=== PATIENT | male | born 1960 | race Caucasian/White ===

== ENCOUNTER 2022-04-02 21:12 | Inpatient (IN) | payer OTHER ==
[~2022-04-02 21:12] MED LIST: Iopamidol-370 76% 500 ML 1 ML ONE
[2022-04-02 22:07] LABS: #Eosinphils 0.2 thou/uL (0.0-0.7); #Lymphocytes 1.5 thou/uL (1.20-3.40); #Monocytes 0.7 thou/uL (0.11-0.59); #Neutrophils 6.9 thou/uL (1.40-6.50); %Basophils 0.4 % (0.0-1.0); %Eosinophils 1.7 % (0.0-10.0); %Lymphocytes 16.3 % (21.0-51.0); %Monocytes 7.3 % (0.0-10.0); %Neutrophils 74.3 % (42.0-75.0); Hemoglobin 14.7 g/dL (14.0-18.0); Mean Corpuscular HGB CONC 33.3 g/dL (32.0-36.0); Mean Corpuscular Hemoglobin 31.8 pg (27.0-31.0); Mean Corpuscular Volume 95.5 fL (78.0-98.0); Mean Platelet Volume 6.1 fL (7.4-10.4); Platelet Count 243 thou/uL (130-400); RBC Distribution Width 12.3 % (11.5-14.5); Red Blood Cell (RBC) Count 4.63 mill/uL (4.70-6.10); White Blood Cell (WBC) Count 9.3 thou/uL (4.8-10.8)
[2022-04-02 22:34] LABS: ALT (SGPT) 25 U/L (8-55); AST (SGOT) 23 U/L (5-34); Albumin 4.8 g/dL (3.4-4.8); Alkaline Phosphatase 83 U/L (40-110); Anion Gap 19 mmol/L (10-20); BUN (Urea Nitrogen) 29 mg/dL (8.4-25.7); Bilirubin, Total 0.6 mg/dL (0.2-1.2); Calc. Creatinine Clearance 0 mL/min (70-130); Calcium 9.6 mg/dL (7.8-10.44); Carbon Dioxide 20 mmol/L (23-31); Chloride 104 mmol/L (98-107); Estimated GFR 44; Globulin 2.5 g/dL (2.4-3.5); Glucose 372 mg/dL (80-115); Potassium 4.6 mmol/L (3.5-5.1); Protein, Total 7.3 g/dL (5.8-8.1); Sodium 138 mmol/L (136-145)
[2022-04-02] MEDS ORDERED: Amiodarone 150 MG/3 ML VIAL ONE (23:20)
[2022-04-02] MEDS ORDERED: Amiodarone 150 MG, Admixture Fee 1 EACH in Dextrose 5% in Water 100 ML IVPB SCH (23:30)
[2022-04-02] MEDS ORDERED: Sodium Chloride 0.9% 1,000 ML IV SCH (23:45)
[2022-04-02] MEDS ORDERED: Dextrose 50% Abboject 50 ML SYRINGE SLOW IVP PRN (23:47)
[2022-04-02] MEDS ORDERED: Insulin Regular 300 UNITS/3 ML VIAL SC PRN (23:47)
[2022-04-02] MEDS ORDERED: Dextrose 5% in Water 1,000 ML IV PRN (23:47)
[2022-04-02] MEDS ORDERED: Ondansetron PF 4 MG/2 ML Vial IVP PRN (23:47)
[2022-04-02] MEDS ORDERED: Ondansetron ODT 4 MG TAB PO PRN (23:47)
[2022-04-03 00:36] LABS: INR-International Normal Ratio 1.1; PTT 32.4 sec (22.9-36.1)
[2022-04-03 00:49] LABS: Magnesium 2.1 mg/dL (1.6-2.6); Phosphorus 2.6 mg/dL (2.3-4.7)
[2022-04-03 01:25] LABS: Troponin I 0.033 ng/mL (< 0.028)
[2022-04-03] MEDS ORDERED: Sodium Chloride 0.9% 1,000 ML IV SCH (01:30)
[2022-04-03] MEDS: Amiodarone 450 MG, Admixture Fee 1 EACH in Dextrose 5% in Water 250 ML IVPB SCH ×3 (01:39→23:51)
[2022-04-03 01:55] LABS: SARS-CoV-2 NAA Rapid Test Not Detected (NotDetected)
[2022-04-03 02:09] VITALS: BMI 30.7
[2022-04-03] MEDS: hydrALAZINE 20 MG/ML VIAL SLOW IVP PRN ×3 (03:33→19:06)
[2022-04-03] MEDS: Insulin Regular 300 UNITS/3 ML VIAL SC PRN ×3 (05:53→16:55)
[2022-04-03] MEDS ORDERED: Labetalol HCl 100 MG/20 ML VIAL SLOW IVP PRN (06:49)
[2022-04-03 07:30] LABS: #Eosinphils 0.1 thou/uL (0.0-0.7); #Lymphocytes 1.6 thou/uL (1.20-3.40); #Monocytes 0.8 thou/uL (0.11-0.59); #Neutrophils 6.9 thou/uL (1.40-6.50); %Basophils 0.3 % (0.0-1.0); %Eosinophils 0.7 % (0.0-10.0); %Lymphocytes 16.9 % (21.0-51.0); %Monocytes 8.1 % (0.0-10.0); Hemoglobin 14.9 g/dL (14.0-18.0); Mean Corpuscular HGB CONC 34.6 g/dL (32.0-36.0); Mean Corpuscular Hemoglobin 33.1 pg (27.0-31.0); Mean Corpuscular Volume 95.6 fL (78.0-98.0); Mean Platelet Volume 6.2 fL (7.4-10.4); Platelet Count 255 thou/uL (130-400); RBC Distribution Width 12.2 % (11.5-14.5); Red Blood Cell (RBC) Count 4.51 mill/uL (4.70-6.10); White Blood Cell (WBC) Count 9.3 thou/uL (4.8-10.8)
[2022-04-03] MEDS: Losartan 25 MG TAB PO SCH (07:33)
[2022-04-03] MEDS: Metoprolol Tartrate 100 MG TAB PO SCH ×2 (07:33→20:56)
[2022-04-03 07:50] LABS: Anion Gap 16 mmol/L (10-20); BUN (Urea Nitrogen) 22 mg/dL (8.4-25.7); Calc. Creatinine Clearance 86 mL/min (70-130); Calcium 9.8 mg/dL (7.8-10.44); Carbon Dioxide 20 mmol/L (23-31); Chloride 107 mmol/L (98-107); Estimated GFR 62; Glucose 214 mg/dL (80-115); Magnesium 2.2 mg/dL (1.6-2.6); Phosphorus 2.7 mg/dL (2.3-4.7); Potassium 4.2 mmol/L (3.5-5.1); Sodium 139 mmol/L (136-145)
[2022-04-03 08:06] LABS: Troponin I 0.037 ng/mL (< 0.028)
[2022-04-03] MEDS: Famotidine/PF 20 mg/2ml Vial SLOW IVP SCH ×2 (08:42→20:55)
[2022-04-03] MEDS ORDERED: Metoprolol Tartrate 100 MG TAB PO SCH (09:00)
[2022-04-03] MEDS ORDERED: TETANUS, DIPHTHERIA TOX,ADULT (TDVAX) 0.5 ML VIAL IM ONE (09:00)
[2022-04-03] MEDS ORDERED: PHOS-NAK 1 PKT PACK PO SCH (09:00)
[2022-04-03] MEDS ORDERED: Losartan 25 MG TAB PO SCH (09:00)
[2022-04-03] MEDS: Acetaminophen 325 MG TAB PO PRN ×2 (12:45→19:05)
[2022-04-04] MEDS: Acetaminophen 325 MG TAB PO PRN ×2 (04:06→10:47)
[2022-04-04 06:51] LABS: #Basophils 0.1 thou/uL (0.0-0.2); #Eosinphils 0.5 thou/uL (0.0-0.7); #Lymphocytes 1.8 thou/uL (1.20-3.40); #Monocytes 0.7 thou/uL (0.11-0.59); #Neutrophils 6.2 thou/uL (1.40-6.50); %Basophils 0.8 % (0.0-1.0); %Eosinophils 4.9 % (0.0-10.0); %Lymphocytes 19.7 % (21.0-51.0); %Monocytes 7.6 % (0.0-10.0); Hemoglobin 15.4 g/dL (14.0-18.0); Mean Corpuscular HGB CONC 34.1 g/dL (32.0-36.0); Mean Corpuscular Hemoglobin 33.1 pg (27.0-31.0); Mean Corpuscular Volume 96.9 fL (78.0-98.0); Mean Platelet Volume 6.6 fL (7.4-10.4); Platelet Count 246 thou/uL (130-400); RBC Distribution Width 12.4 % (11.5-14.5); Red Blood Cell (RBC) Count 4.65 mill/uL (4.70-6.10); White Blood Cell (WBC) Count 9.2 thou/uL (4.8-10.8)
[2022-04-04 07:10] LABS: Anion Gap 14 mmol/L (10-20); BUN (Urea Nitrogen) 17 mg/dL (8.4-25.7); Calc. Creatinine Clearance 88 mL/min (70-130); Calcium 9.6 mg/dL (7.8-10.44); Carbon Dioxide 22 mmol/L (23-31); Chloride 106 mmol/L (98-107); Estimated GFR 63; Glucose 177 mg/dL (80-115); Phosphorus 2.7 mg/dL (2.3-4.7); Potassium 4.6 mmol/L (3.5-5.1); Sodium 137 mmol/L (136-145)
[2022-04-04] MEDS: Insulin Regular 300 UNITS/3 ML VIAL SC PRN ×3 (07:41→11:30)
[2022-04-04] MEDS: Amiodarone 200 MG TAB PO SCH (07:44)
[2022-04-04] MEDS: Metoprolol Tartrate 100 MG TAB PO SCH ×2 (07:45→21:15)
[2022-04-04] MEDS: Losartan 25 MG TAB PO SCH (07:45)
[2022-04-04] MEDS: Aspirin 325 mg Enteric Coated Tablet PO SCH ×2 (08:02→08:04)
[2022-04-04] MEDS: Famotidine 20 MG TAB PO SCH ×2 (08:03→21:14)
[2022-04-04] MEDS: metFORMIN 500 MG TAB PO SCH ×2 (08:04→16:42)
[2022-04-04] MEDS: hydrALAZINE 20 MG/ML VIAL SLOW IVP PRN ×2 (10:30→16:43)
[2022-04-04] MEDS ORDERED: Acetaminophen 325 MG TAB PO SCH (10:45)
[2022-04-04] MEDS: ALPRAZolam 0.25 MG TAB PO PRN ×2 (10:56→21:17)
[2022-04-04] MEDS ORDERED: Atorvastatin Calcium 20 MG TAB PO SCH (21:00)
[2022-04-05] MEDS ORDERED: Polyethylene Glycol 3350 17 GM Packet PO SCH (09:00)
[2022-04-05] MEDS ORDERED: Losartan 25 MG TAB PO SCH (09:00)
[2022-04-05] MEDS ORDERED: Senokot S 8.6-50 MG TAB PO SCH (09:00)
[2022-04-05] MEDS ORDERED: Empagliflozin 10 MG TAB PO SCH (09:00)
[2022-04-05] MEDS: Amiodarone 200 MG TAB PO SCH (09:36)
[2022-04-05] MEDS: Famotidine 20 MG TAB PO SCH (09:37)
[2022-04-05] MEDS: Metoprolol Tartrate 100 MG TAB PO SCH (09:37)
[2022-04-05] MEDS: metFORMIN 500 MG TAB PO SCH (09:37)
[2022-04-05] MEDS: Insulin Regular 300 UNITS/3 ML VIAL SC PRN (11:04)
[2022-04-05 13:50] VITALS: BP 145/89; TEMP 98.3
== END 2022-04-05 13:15 | disposition home or self-care (01) | DRG 85 ==
LOC: ERS 21:12 → CCU 23:20 → 2NO 04-04 16:09
PROVIDERS: ADMIT Surgery; ATTEND Surgery
PROC: 6A550Z2 Pheresis of Platelets, Single (ICD-10-PCS; principal; 2022-04-02)
PROC: 4B02XTZ Measurement of Cardiac Defibrillator, External Approach (ICD-10-PCS; 2022-04-04)
DX: S06.6X1A Traumatic subarachnoid hemorrhage with loss of consciousness of 30 minutes or less, initial encounter (principal); I46.2 Cardiac arrest due to underlying cardiac condition; I49.01 Ventricular fibrillation; N17.9 Acute kidney failure, unspecified; Z20.822 Contact with and (suspected) exposure to COVID-19; I25.10 Atherosclerotic heart disease of native coronary artery without angina pectoris; I10 Essential (primary) hypertension; E11.65 Type 2 diabetes mellitus with hyperglycemia; R04.0 Epistaxis; I08.3 Combined rheumatic disorders of mitral, aortic and tricuspid valves; W18.30XA Fall on same level, unspecified, initial encounter; S00.01XA Abrasion of scalp, initial encounter; R40.2362 Coma scale, best motor response, obeys commands, at arrival to emergency department; R40.2142 Coma scale, eyes open, spontaneous, at arrival to emergency department; R40.2252 Coma scale, best verbal response, oriented, at arrival to emergency department; E78.5 Hyperlipidemia, unspecified; I48.91 Unspecified atrial fibrillation; I25.5 Ischemic cardiomyopathy; E83.39 Other disorders of phosphorus metabolism; Z95.810 Presence of automatic (implantable) cardiac defibrillator; Z95.2 Presence of prosthetic heart valve; Z95.1 Presence of aortocoronary bypass graft; Z79.01 Long term (current) use of anticoagulants; Z95.5 Presence of coronary angioplasty implant and graft
CPT/HCPCS: 36415; 36416; 36430; 70450; 70496; 71045; 80048; 80053; 83735; 84100; 84484; 85025; 85610; 85730; 86850; 86900; 86901; 93005; 93010; 93306; G0390; J0282; J0360; J1815; J7050; J7070; P9035; Q9967; S0028; U0002